=== PATIENT | female | born 1935 | race Caucasian/White ===

== ENCOUNTER 2022-12-11 13:37 | Inpatient (IN) | payer MEDICARE, OTHER ==
[~2022-12-11] VITALS: Ht 152.4 cm; Wt 74.8 kg
[2022-12-11] MEDS ORDERED: TRAMADOL HCL 50 MG TAB PO ONE (14:00)
[2022-12-11] MEDS ORDERED: SODIUM CHLORIDE FLUSH 10 ML SYR INJ PRN (15:45)
[2022-12-11 15:53] LABS: BASOPHILS % 0.3 % (0.0-1.0); EOSINOPHILS % 0.3 % (0.0-6.0); HEMATOCRIT 41.4 % (34.2-44.1); HEMOGLOBIN 13.1 g/dL (12.0-16.0); LYMPHOCYTES # (AUTO) 0.8 (1.0-3.2); LYMPHOCYTES % 11.1 % (18.0-39.1); MEAN CORPUSCULAR HEMOGLOBIN 28.7 pg (28-32); MEAN CORPUSCULAR HGB CONC 31.6 g/dL (31-35); MEAN CORPUSCULAR VOLUME 90.8 fL (81-99); MONOCYTES # (AUTO) 0.6 (0.2-0.8); NEUTROPHILS # (AUTO) 5.3 (2.1-6.9); NEUTROPHILS % 78.7 % (38.7-80.0); PLATELET COUNT 226 x10e3/uL (140-360); RED BLOOD COUNT 4.56 x10e6/uL (3.6-5.1); RED CELL DISTRIBUTION WIDTH 15.6 % (11.7-14.4)
[2022-12-11 15:59] LABS: INR 0.98; PROTHROMBIN TIME 13.5 seconds (11.9-14.5)
[2022-12-11 16:06] LABS: ALBUMIN 3.5 g/dL (3.5-5.0); ALBUMIN/GLOBULIN RATIO 1.1 (0.8-2.0); CALCIUM 9.2 mg/dL (8.4-10.2); CREATININE, SERUM 0.92 mg/dL (0.57-1.11)
[2022-12-11 19:56] VITALS: BP 114/67
[2022-12-11 19:58] VITALS: BP 114/67
[2022-12-11] MEDS ORDERED: BUMETANIDE1 MG PO (20:50)
[2022-12-11] MEDS ORDERED: METOPROLOL SUCC50 MG PO (20:50)
[2022-12-11] MEDS ORDERED: TRAZODONE HCL100 MG PO (20:50)
[2022-12-11] MEDS ORDERED: METOLAZONE5 MG PO (20:50)
[2022-12-11] MEDS ORDERED: OMEPRAZOLE20 MG PO (20:50)
[2022-12-11] MEDS ORDERED: KLOR-CON M2020 MEQ PO (20:50)
[2022-12-11] MEDS ORDERED: CLOPIDOGREL75 MG PO (20:50)
[2022-12-11 21:06] VITALS: BP 114/67
[2022-12-11] MEDS ORDERED: SIMETHICONE 80 MG CHEW PO PRN (23:30)
[2022-12-12 00:55] VITALS: BP 113/67
[2022-12-12 04:00] VITALS: BP 108/61
[2022-12-12 06:12] LABS: BASOPHILS % 0.5 % (0.0-1.0); EOSINOPHILS # (AUTO) 0.1 (0.0-0.4); EOSINOPHILS % 2.3 % (0.0-6.0); HEMATOCRIT 33.6 % (34.2-44.1); HEMOGLOBIN 11.3 g/dL (12.0-16.0); LYMPHOCYTES # (AUTO) 0.9 (1.0-3.2); LYMPHOCYTES % 19.9 % (18.0-39.1); MEAN CORPUSCULAR HEMOGLOBIN 31.7 pg (28-32); MEAN CORPUSCULAR HGB CONC 33.6 g/dL (31-35); MEAN CORPUSCULAR VOLUME 94.1 fL (81-99); MONOCYTES # (AUTO) 0.5 (0.2-0.8); MONOCYTES % 12.2 % (4.4-11.3); NEUTROPHILS # (AUTO) 2.8 (2.1-6.9); NEUTROPHILS % 64.9 % (38.7-80.0); PLATELET COUNT 150 x10e3/uL (140-360); RED BLOOD COUNT 3.57 x10e6/uL (3.6-5.1); RED CELL DISTRIBUTION WIDTH 18.2 % (11.7-14.4)
[2022-12-12 06:30] LABS: ALBUMIN 2.9 g/dL (3.5-5.0); ALBUMIN/GLOBULIN RATIO 1.1 (0.8-2.0); ANION GAP 15.6 mmol/L (8-16); CALCIUM 8.7 mg/dL (8.4-10.2); CREATININE, SERUM 0.82 mg/dL (0.57-1.11)
[2022-12-12 06:34] LABS: POTASSIUM 2.6 mmol/L (3.5-5.1)
[2022-12-12] MEDS ORDERED: POTASSIUM CHLORIDE 10MEQ/100ML 200 ML IV ONE (07:15)
[2022-12-12] MEDS ORDERED: POTASSIUM CHLORIDE 20 MEQ TAB CR PO ONE (07:30)
[2022-12-12 08:25] VITALS: BP 117/73
[2022-12-12] MEDS: PANTOPRAZOLE SOD 40 MG TABEC PO SCH (09:03)
[2022-12-12] MEDS: BUMETANIDE 1 MG TAB PO SCH (09:03)
[2022-12-12] MEDS: METOLAZONE 5 MG TAB PO SCH (09:03)
[2022-12-12] MEDS: METOPROLOL SUCCINATE 50 MG TAB XL PO SCH (09:06)
[2022-12-12] MEDS ORDERED: SODIUM CHLORIDE 0.9% 250ML 250 ML ONE (09:07)
[2022-12-12] MEDS: OYST-CAL-D 500MG TABLET PO SCH ×3 (09:08→21:18)
[2022-12-12] MEDS: ONDANSETRON HCL INJ 2MG/ML 2ML 2 MG/ML VIAL IV PRN (09:13)
[2022-12-12] MEDS: Morphine 4mg INJECTION 4 MG/ML INJ IV PRN ×2 (09:13→18:26)
[2022-12-12] MEDS ORDERED: POTASSIUM CHLORIDE 10MEQ EA PO ONE ×2 (12:15→14:00)
[2022-12-12 16:00] VITALS: BP 112/70
[2022-12-12] MEDS: ENOXAPARIN SOD INJ 40 MG/0.4 ML SYR SC SCH (17:16)
[2022-12-12 20:00] VITALS: BP 120/76
[2022-12-12] MEDS: TRAZODONE HCL 50 MG TAB PO PRN (21:43)
[2022-12-12 23:56] VITALS: BP 114/74
[2022-12-13 03:04] VITALS: BP 114/74
[2022-12-13 05:00] VITALS: BP 116/70
[2022-12-13 08:40] VITALS: BP 124/91
[2022-12-13 09:01] LABS: ANION GAP 14.1 mmol/L (8-16); CALCIUM 9.3 mg/dL (8.4-10.2); CREATININE, SERUM 0.97 mg/dL (0.57-1.11); POTASSIUM 4.1 mmol/L (3.5-5.1)
[2022-12-13] MEDS: METOLAZONE 5 MG TAB PO SCH (09:59)
[2022-12-13] MEDS: PANTOPRAZOLE SOD 40 MG TABEC PO SCH (09:59)
[2022-12-13] MEDS: BUMETANIDE 1 MG TAB PO SCH (09:59)
[2022-12-13] MEDS: METOPROLOL SUCCINATE 50 MG TAB XL PO SCH (09:59)
[2022-12-13] MEDS: OYST-CAL-D 500MG TABLET PO SCH ×3 (09:59→21:55)
[2022-12-13 12:15] VITALS: BP 120/68
[2022-12-13] MEDS: ENOXAPARIN SOD INJ 40 MG/0.4 ML SYR SC SCH (17:30)
[2022-12-13] MEDS: Morphine 4mg INJECTION 4 MG/ML INJ IV PRN (17:58)
[2022-12-13] MEDS: ONDANSETRON HCL INJ 2MG/ML 2ML 2 MG/ML VIAL IV PRN (17:58)
[2022-12-13 18:41] LABS: CLARITY,URINE SL CLOUDY (CLEAR); COLOR,URINE YELLOW (YELLOW); KETONES,URINE NEGATIVE (NEGATIVE); LEUKOCYTE ESTERASE ,URINE SMALL (NEGATIVE); NITRITE,URINE NEGATIVE (NEGATIVE); PROTEIN,URINE DIPSTICK NEGATIVE (NEGATIVE); URINE UROBILINOGEN 1 mg/dL (0.2 - 1)
[2022-12-13 18:49] LABS: BACTERIA,URINE MODERATE /HPF; RBC,URINE 21-50 /HPF (0-5)
[2022-12-13 20:00] VITALS: BP 116/70
[2022-12-13] MEDS: TRAZODONE HCL 50 MG TAB PO PRN (21:55)
[2022-12-14] MEDS ORDERED: SODIUM CHLORIDE 0.9% 1000ML 1,000 ML IV SCH
[2022-12-14 00:35] VITALS: BP 116/67
[2022-12-14 01:21] VITALS: BP 116/67
[2022-12-14 08:12] VITALS: BP 107/67
[2022-12-14] MEDS: BUMETANIDE 1 MG TAB PO SCH (09:00)
[2022-12-14] MEDS: PANTOPRAZOLE SOD 40 MG TABEC PO SCH (09:00)
[2022-12-14] MEDS: OYST-CAL-D 500MG TABLET PO SCH ×3 (09:00→20:19)
[2022-12-14] MEDS: METOPROLOL SUCCINATE 50 MG TAB XL PO SCH (09:00)
[2022-12-14] MEDS: METOLAZONE 5 MG TAB PO SCH (09:00)
[2022-12-14] MEDS ORDERED: Vancomycin IV 1,000 MG ONE (10:26)
[2022-12-14] MEDS ORDERED: SODIUM CHLORIDE 0.9% 500ML 500 ML ONE (10:26)
[2022-12-14] MEDS ORDERED: TRANEXAMIC ACID 20 ML ONE (10:28)
[2022-12-14] MEDS ORDERED: CEFAZOLIN SODIUM 2 GM ONE (10:48)
[2022-12-14] MEDS ORDERED: ROPIVACAINE 246.25 MG, EPINEPHRINE HCL 1:1000 1ML 0.5 MG, CLONIDINE HCL 0.08 MG, KETORO... IV ONE ×5 (11:00)
[2022-12-14] MEDS ORDERED: PROPOFOL IV EMULSION 10 MG/ML 20 ML VIAL ONE ×2 (11:10→12:51)
[2022-12-14] MEDS ORDERED: BUPIVACAINE 0.5%/EPI 30 ML SDV INJ ONE (11:11)
[2022-12-14] MEDS ORDERED: BUPIVACAINE HCL 0.25% 10ML MPF VIAL INJ ONE (11:11)
[2022-12-14] MEDS ORDERED: POVIDONE IODINE 0.05% 0.05 % ML PO ONE (12:51)
[2022-12-14] MEDS ORDERED: DEXAMETHASONE SOD PHOS INJ 4 MG/ML SDV ONE (12:51)
[2022-12-14] MEDS ORDERED: LIDOCAINE HCL 2% LOCAL INJ 5 ML SDV VIAL INJ ONE (12:51)
[2022-12-14] MEDS ORDERED: ETOMIDATE 2 MG/ML 10 ML INJ IV ONE (12:51)
[2022-12-14] MEDS ORDERED: ROCURONIUM BROMIDE 10 MG/ML 5ML VIAL IV ONE (12:51)
[2022-12-14] MEDS ORDERED: SEVOFLURANE INHAL SOLN 250 ML PEN BTL ONE (12:51)
[2022-12-14] MEDS ORDERED: ONDANSETRON HCL INJ 2MG/ML 2ML 2 MG/ML VIAL ONE (12:51)
[2022-12-14] MEDS ORDERED: FENTANYL CITRATE/PF 100MCG/2 ML INJ ONE ×2 (13:57→15:18)
[2022-12-14] MEDS ORDERED: NALOXONE HCL INJ 0.4 MG/ML AMP IV PRN (14:45)
[2022-12-14] MEDS ORDERED: ONDANSETRON HCL INJ 2MG/ML 2ML 2 MG/ML VIAL IV PRN (14:45)
[2022-12-14] MEDS: SODIUM CHLORIDE 0.9% 1000ML 1,000 ML IV SCH (14:45)
[2022-12-14] MEDS: HYDROMORPHONE 0.2MG/ML-SOD CHL 30ML PCA SYRINGE IV PRN (14:51)
[2022-12-14 16:24] VITALS: BP 130/67
[2022-12-14] MEDS ORDERED: ACETAMINOPHEN 1000 MG/100 ML IV PRN (18:00)
[2022-12-14] MEDS: TRAZODONE HCL 50 MG TAB PO PRN (20:20)
[2022-12-14 20:51] VITALS: BP 102/61
[2022-12-15] VITALS (8 sets, daily range): BP systolic 102–121; BP diastolic 63–72
[2022-12-15] MEDS: SODIUM CHLORIDE 0.9% 1000ML 1,000 ML IV SCH ×2 (00:45→10:45)
[2022-12-15 06:28] LABS: BASOPHILS % 0.1 % (0.0-1.0); EOSINOPHILS % 0.1 % (0.0-6.0); HEMATOCRIT 28.4 % (34.2-44.1); HEMOGLOBIN 9.4 g/dL (12.0-16.0); LYMPHOCYTES # (AUTO) 0.6 (1.0-3.2); LYMPHOCYTES % 7.3 % (18.0-39.1); MEAN CORPUSCULAR HEMOGLOBIN 30.5 pg (28-32); MEAN CORPUSCULAR HGB CONC 33.1 g/dL (31-35); MEAN CORPUSCULAR VOLUME 92.2 fL (81-99); MONOCYTES # (AUTO) 1.1 (0.2-0.8); MONOCYTES % 13.1 % (4.4-11.3); NEUTROPHILS # (AUTO) 6.5 (2.1-6.9); NEUTROPHILS % 78.8 % (38.7-80.0); PLATELET COUNT 145 x10e3/uL (140-360); RED BLOOD COUNT 3.08 x10e6/uL (3.6-5.1); RED CELL DISTRIBUTION WIDTH 16.1 % (11.7-14.4)
[2022-12-15 06:46] LABS: ANION GAP 16.6 mmol/L (8-16); CALCIUM 8.5 mg/dL (8.4-10.2); CREATININE, SERUM 0.84 mg/dL (0.57-1.11); POTASSIUM 3.6 mmol/L (3.5-5.1)
[2022-12-15] MEDS: METOLAZONE 5 MG TAB PO SCH (08:37)
[2022-12-15] MEDS: PANTOPRAZOLE SOD 40 MG TABEC PO SCH (08:37)
[2022-12-15] MEDS: OYST-CAL-D 500MG TABLET PO SCH ×3 (08:37→20:01)
[2022-12-15] MEDS: RIVAROXABAN 10 MG TABLET PO SCH (08:38)
[2022-12-15] MEDS: BUMETANIDE 1 MG TAB PO SCH (08:38)
[2022-12-15] MEDS: METOPROLOL SUCCINATE 50 MG TAB XL PO SCH (08:38)
[2022-12-15] MEDS ORDERED: ONDANSETRON HCL 4 MG ORAL DISINTEGRATING TAB PO PRN (10:45)
[2022-12-15] MEDS: TRAZODONE HCL 50 MG TAB PO PRN (19:59)
[2022-12-16] VITALS (9 sets, daily range): BP systolic 107–120; BP diastolic 64–72
[2022-12-16] MEDS: SODIUM CHLORIDE 0.9% 1000ML 1,000 ML IV SCH (02:03)
[2022-12-16 06:09] LABS: BASOPHILS % 0.2 % (0.0-1.0); EOSINOPHILS # (AUTO) 0.1 (0.0-0.4); EOSINOPHILS % 1.1 % (0.0-6.0); HEMATOCRIT 32.5 % (34.2-44.1); HEMOGLOBIN 10.3 g/dL (12.0-16.0); LYMPHOCYTES # (AUTO) 1.2 (1.0-3.2); LYMPHOCYTES % 12.9 % (18.0-39.1); MEAN CORPUSCULAR HEMOGLOBIN 28.9 pg (28-32); MEAN CORPUSCULAR HGB CONC 31.7 g/dL (31-35); MEAN CORPUSCULAR VOLUME 91.3 fL (81-99); MONOCYTES # (AUTO) 1.3 (0.2-0.8); MONOCYTES % 14.3 % (4.4-11.3); NEUTROPHILS # (AUTO) 6.6 (2.1-6.9); NEUTROPHILS % 70.6 % (38.7-80.0); PLATELET COUNT 191 x10e3/uL (140-360); RED BLOOD COUNT 3.56 x10e6/uL (3.6-5.1); RED CELL DISTRIBUTION WIDTH 15.9 % (11.7-14.4)
[2022-12-16 06:34] LABS: ANION GAP 16.3 mmol/L (8-16); CALCIUM 9.2 mg/dL (8.4-10.2); CREATININE, SERUM 0.88 mg/dL (0.57-1.11); POTASSIUM 3.3 mmol/L (3.5-5.1)
[2022-12-16] MEDS: PANTOPRAZOLE SOD 40 MG TABEC PO SCH (09:12)
[2022-12-16] MEDS: RIVAROXABAN 10 MG TABLET PO SCH (09:12)
[2022-12-16] MEDS: METOLAZONE 5 MG TAB PO SCH (09:12)
[2022-12-16] MEDS: METOPROLOL SUCCINATE 50 MG TAB XL PO SCH (09:13)
[2022-12-16] MEDS: BUMETANIDE 1 MG TAB PO SCH (09:13)
[2022-12-16] MEDS: OYST-CAL-D 500MG TABLET PO SCH ×3 (09:14→21:00)
[2022-12-16] MEDS ORDERED: POTASSIUM CHLORIDE 20 MEQ TAB CR PO ONE (10:00)
[2022-12-16] MEDS: TRAZODONE HCL 50 MG TAB PO PRN (21:03)
[2022-12-17] VITALS (8 sets, daily range): BP systolic 107–129; BP diastolic 60–72
[2022-12-17] MEDS: SODIUM CHLORIDE 0.9% 250ML 250 ML IV SCH ×2 (00:09→15:00)
[2022-12-17] MEDS: METOPROLOL SUCCINATE 50 MG TAB XL PO SCH (09:00)
[2022-12-17] MEDS: RIVAROXABAN 10 MG TABLET PO SCH (09:05)
[2022-12-17] MEDS: BUMETANIDE 1 MG TAB PO SCH (09:05)
[2022-12-17] MEDS: PANTOPRAZOLE SOD 40 MG TABEC PO SCH (09:06)
[2022-12-17] MEDS: OYST-CAL-D 500MG TABLET PO SCH ×3 (09:06→21:23)
[2022-12-17] MEDS: METOLAZONE 5 MG TAB PO SCH (09:07)
[2022-12-17 13:38] LABS: HEMATOCRIT 35.2 % (34.2-44.1)
[2022-12-17 13:54] LABS: ANION GAP 18.8 mmol/L (8-16); CALCIUM 9.3 mg/dL (8.4-10.2); CREATININE, SERUM 0.79 mg/dL (0.57-1.11)
[2022-12-17 13:58] LABS: POTASSIUM 2.8 mmol/L (3.5-5.1)
[2022-12-17 14:10] LABS: PHOSPHORUS 2.7 MG/DL (2.3-4.7)
[2022-12-17 14:17] LABS: MAGNESIUM 1.1 MG/DL (1.3-2.1)
[2022-12-17] MEDS ORDERED: POTASSIUM CHLORIDE 20 MEQ TAB CR PO STA (14:39)
[2022-12-17] MEDS ORDERED: MAGNESIUM SULFATE 2GM/50ML 50 ML IV ONE (15:00)
[2022-12-17] MEDS ORDERED: POTASSIUM CHLORIDE 10MEQ EA PO ONE (15:45)
[2022-12-17] MEDS: HYDROMORPHONE 0.2MG/ML-SOD CHL 30ML PCA SYRINGE IV PRN (15:53)
[2022-12-17] MEDS: DOCUSATE SODIUM 100 MG CAP PO PRN (18:03)
[2022-12-17] MEDS: FUROSEMIDE INJ 10 MG/ML 4 ML VIAL IV SCH (18:04)
[2022-12-17] MEDS: TRAZODONE HCL 50 MG TAB PO PRN (21:23)
[2022-12-18] VITALS (8 sets, daily range): BP systolic 101–117; BP diastolic 58–66
[2022-12-18] MEDS: RIVAROXABAN 10 MG TABLET PO SCH (09:29)
[2022-12-18] MEDS: OYST-CAL-D 500MG TABLET PO SCH ×3 (09:29→20:27)
[2022-12-18] MEDS: METOLAZONE 5 MG TAB PO SCH (09:29)
[2022-12-18] MEDS: METOPROLOL SUCCINATE 50 MG TAB XL PO SCH (09:29)
[2022-12-18] MEDS: SENNOSIDES 8.6 MG TAB PO SCH ×2 (09:30→17:43)
[2022-12-18] MEDS: PANTOPRAZOLE SOD 40 MG TABEC PO SCH (09:30)
[2022-12-18] MEDS: FUROSEMIDE INJ 10 MG/ML 4 ML VIAL IV SCH ×2 (09:30→20:27)
[2022-12-18] MEDS ORDERED: HYDROCODONE/APAP 5MG-325MG TAB PO PRN (10:30)
[2022-12-18] MEDS: HYDROCODONE/APAP 5MG-325MG TAB PO PRN ×2 (11:59→20:28)
[2022-12-18 13:20] LABS: CALCIUM 9.4 mg/dL (8.4-10.2); CREATININE, SERUM 0.8 mg/dL (0.57-1.11); MAGNESIUM 1.2 MG/DL (1.3-2.1)
[2022-12-18] MEDS ORDERED: MAGNESIUM SULFATE 2GM/50ML 50 ML IV ONE (13:45)
[2022-12-18] MEDS ORDERED: POTASSIUM CHLORIDE 20 MEQ TAB CR PO ONE (14:00)
[2022-12-18] MEDS: SODIUM CHLORIDE 0.9% 250ML 250 ML IV SCH (14:49)
[2022-12-18] MEDS: Morphine 4mg INJECTION 4 MG/ML INJ IV PRN (17:44)
[2022-12-18] MEDS: TRAZODONE HCL 50 MG TAB PO PRN (20:27)
[2022-12-19] VITALS (7 sets, daily range): BP systolic 95–195; BP diastolic 52–61
[2022-12-19] MEDS: HYDROCODONE/APAP 5MG-325MG TAB PO PRN ×2 (04:54→11:08)
[2022-12-19] MEDS: RIVAROXABAN 10 MG TABLET PO SCH (08:33)
[2022-12-19] MEDS: SENNOSIDES 8.6 MG TAB PO SCH (08:33)
[2022-12-19] MEDS: OYST-CAL-D 500MG TABLET PO SCH (08:33)
[2022-12-19] MEDS: METOLAZONE 5 MG TAB PO SCH (08:36)
[2022-12-19] MEDS: PANTOPRAZOLE SOD 40 MG TABEC PO SCH (08:36)
[2022-12-19] MEDS: METOPROLOL SUCCINATE 50 MG TAB XL PO SCH (08:36)
[2022-12-19] MEDS: FUROSEMIDE INJ 10 MG/ML 4 ML VIAL IV SCH (08:37)
[2022-12-19 09:03] LABS: HEMATOCRIT 32.7 % (34.2-44.1); HEMOGLOBIN 10.4 g/dL (12.0-16.0)
[2022-12-19 09:35] LABS: ANION GAP 15.8 mmol/L (8-16); CALCIUM 8.8 mg/dL (8.4-10.2); CREATININE, SERUM 0.77 mg/dL (0.57-1.11); MAGNESIUM 1.5 MG/DL (1.3-2.1); PHOSPHORUS 3.5 MG/DL (2.3-4.7)
[2022-12-19 09:40] LABS: POTASSIUM 2.8 mmol/L (3.5-5.1)
[2022-12-19] MEDS ORDERED: Docusate Sodium PO (09:56)
[2022-12-19] MEDS ORDERED: Calcium Carbonate PO (09:56)
[2022-12-19] MEDS ORDERED: XARELTO10 MG PO (09:56)
[2022-12-19] MEDS ORDERED: SENOKOT8.6 MG PO (09:56)
[2022-12-19] MEDS ORDERED: POTASSIUM CHLORIDE 20 MEQ TAB CR PO ONE (10:30)
[2022-12-19] MEDS: DOCUSATE SODIUM 100 MG CAP PO PRN (11:09)
[2022-12-20] MEDS ORDERED: FAMOTIDINE 20 MG TAB PO SCH (09:00)
== END 2022-12-19 15:57 | DRG 522 ==
LOC: ER 13:46 → ERHOLD 15:45 → MED/SURG3 18:45
PROVIDERS: ADMIT Internal Medicine; ATTEND Internal Medicine
PROC: 0SRR0J9 Replacement of Right Hip Joint, Femoral Surface with Synthetic Substitute, Cemented, Open Approach (ICD-10-PCS; principal; 2022-12-14 11:47)
DX: S72.011A Unspecified intracapsular fracture of right femur, initial encounter for closed fracture (principal); J90 Pleural effusion, not elsewhere classified; E87.1 Hypo-osmolality and hyponatremia; I25.10 Atherosclerotic heart disease of native coronary artery without angina pectoris; I11.0 Hypertensive heart disease with heart failure; I50.9 Heart failure, unspecified; W01.0XXA Fall on same level from slipping, tripping and stumbling without subsequent striking against object, initial encounter; G47.00 Insomnia, unspecified; Y92.008 Other place in unspecified non-institutional (private) residence as the place of occurrence of the external cause; I27.20 Pulmonary hypertension, unspecified; E87.6 Hypokalemia; Z20.822 Contact with and (suspected) exposure to COVID-19
CPT/HCPCS: 36415; 71045; 72170; 80048; 80053; 81001; 82248; 83735; 84100; 84132; 85014; 85018; 85025; 85610; 85730; 86850; 86900; 88304; 88305; 88311; 93005; 93306; 94799; 99252; 99284; C1713; C1776; J0171; J0690; J1100; J1650; J1885; J1940; J2001; J2270; J2405; J2795; J3370; J3475; J3480; J7030; J7040; J7050

== ENCOUNTER 2023-02-18 21:01 | Emergency (ER) | payer MEDICARE, OTHER ==
[~2023-02-18] VITALS: Ht 152.4 cm; Wt 74.8 kg
[~2023-02-18 21:01] MED LIST: BUMETANIDE1 MG PO; CLOPIDOGREL75 MG PO; Calcium Carbonate PO; Docusate Sodium PO; KLOR-CON M2020 MEQ PO; METOLAZONE5 MG PO; METOPROLOL SUCC50 MG PO; OMEPRAZOLE20 MG PO; SENOKOT8.6 MG PO; TRAZODONE HCL100 MG PO; XARELTO10 MG PO
[2023-02-18] MEDS ORDERED: AMIODARONE 900MG 500 ML IV ONE (21:13)
[2023-02-18] MEDS ORDERED: AMIODARONE HCL 100 ML IV ONE (21:13)
[2023-02-18] MEDS ORDERED: AMIODARONE HCL 150 MG/100 ML BAG IV ONE (21:15)
[2023-02-18] MEDS ORDERED: AMIODARONE 900MG 500 ML IV SCH (21:15)
[2023-02-18] MEDS ORDERED: ONDANSETRON HCL INJ 2MG/ML 2ML 2 MG/ML VIAL IV STA (21:39)
[2023-02-18] MEDS ORDERED: Morphine 4mg INJECTION 4 MG/ML INJ IV STA ×2 (21:39→23:49)
[2023-02-18] MEDS ORDERED: ONDANSETRON HCL INJ 2MG/ML 2ML 2 MG/ML VIAL ONE (21:41)
[2023-02-18] MEDS ORDERED: Morphine 4mg INJECTION 4 MG/ML INJ ONE ×2 (21:42→23:57)
[2023-02-18 21:50] LABS: ALANINE AMINOTRANSFERASE 18 IU/L (0-55); ALKALINE PHOSPHATASE 119 IU/L (40-150); ANION GAP 19.8 mmol/L (8-16); BLOOD UREA NITROGEN 21 mg/dL (7-26); BUN/CREATININE RATIO 16 (6-25); CALCIUM 9.5 mg/dL (8.4-10.2); CARBON DIOXIDE 23 mmol/L (22-29); CHLORIDE 92 mmol/L (98-107); CREATINE KINASE 295 IU/L (29-168); CREATININE, SERUM 1.28 mg/dL (0.57-1.11); GLUCOSE 151 mg/dL (74-118); SODIUM 132 mmol/L (136-145)
[2023-02-18 21:56] LABS: BASOPHILS % 0.1 % (0.0-1.0); EOSINOPHILS % 0.2 % (0.0-6.0); HEMATOCRIT 36.6 % (34.2-44.1); LYMPHOCYTES # (AUTO) 0.4 (1.0-3.2); LYMPHOCYTES % 4.9 % (18.0-39.1); MEAN CORPUSCULAR HEMOGLOBIN 29.1 pg (28-32); MEAN CORPUSCULAR HGB CONC 32.8 g/dL (31-35); MEAN CORPUSCULAR VOLUME 88.6 fL (81-99); MONOCYTES # (AUTO) 0.9 (0.2-0.8); MONOCYTES % 10.9 % (4.4-11.3); NEUTROPHILS # (AUTO) 6.8 (2.1-6.9); NEUTROPHILS % 83.4 % (38.7-80.0); PLATELET COUNT 220 x10e3/uL (140-360); RED BLOOD COUNT 4.13 x10e6/uL (3.6-5.1); RED CELL DISTRIBUTION WIDTH 15.4 % (11.7-14.4)
[2023-02-18 22:02] LABS: ALBUMIN < 0.4 g/dL (3.5-5.0); ALBUMIN/GLOBULIN RATIO 0.1 (0.8-2.0); POTASSIUM 2.8 mmol/L (3.5-5.1)
[2023-02-18] MEDS ORDERED: POTASSIUM CHLORIDE 20 MEQ TAB CR PO STA (22:48)
[2023-02-18] MEDS ORDERED: POTASSIUM CHLORIDE 20 MEQ TAB CR PO ONE (23:14)
[2023-02-19 00:23] VITALS: BP 118/74; PULSE 76; RESP 18; TEMP 98.3; O2SAT 98
== END 2023-02-19 00:18 | disposition short-term general hospital (02) ==
LOC: ER 21:05
DX: I47.20 Ventricular tachycardia, unspecified (principal); S73.004A Unspecified dislocation of right hip, initial encounter; E87.6 Hypokalemia; Z96.641 Presence of right artificial hip joint; I25.10 Atherosclerotic heart disease of native coronary artery without angina pectoris; I11.0 Hypertensive heart disease with heart failure; I50.9 Heart failure, unspecified; I25.2 Old myocardial infarction; F03.90 Unspecified dementia, unspecified severity, without behavioral disturbance, psychotic disturbance, mood disturbance, and anxiety; W19.XXXA Unspecified fall, initial encounter; Z20.822 Contact with and (suspected) exposure to COVID-19; Z79.02 Long term (current) use of antithrombotics/antiplatelets
CPT/HCPCS: 36415; 71045; 73502; 80053; 82550; 82553; 84484; 85025; 93005; 99285; J2270; J2405; U0002